=== PATIENT | male | born 1985 | race African-American/Black ===

== ENCOUNTER 2016-11-18 19:37 | Emergency (ER) | payer OTHER ==
--- NOTE | 2016-11-18 20:40 | ER Document Report ---
HPI - HPI Patient complains to provider of: toothache Onset: Other - 1 month Onset/Duration: Persistent Quality of pain: Throbbing Pain Level: 5 Context: 31-year-old male complaining of upper right dental pain for 1 month. He feels like his face is swollen to. No fever or chills. [facility] who treated him with amox[facility] which helped some. It is gotten worse again over the past couple days. He could not sleep last night. Associated Symptoms: None Exacerbated by: Denies Relieved by: Denies Similar symptoms previously: Yes Recently seen / treated by doctor: Yes - ROS ROS below otherwise negative: Yes Systems Reviewed and Negative: Yes All other systems reviewed and negative - DERM Skin Color: Normal Past Medical History - General Information source: Patient - Social History Smoking Status: Current Every Day Smoker Chew tobacco use (# tins/day): No Frequency of alcohol use: Occasional Drug Abuse: None Lives with: Family Family History: Reviewed & Not Pertinent Patient has suicidal ideation: No Patient has homicidal ideation: No - Medical History Medical History: Negative Renal/ Medical History: Denies: Hx Peritoneal Dialysis Surgical Hx: Negative - Immunizations Hx Diphtheria, Pertussis, Tetanus Vaccination: No Vertical Provider Document - CONSTITUTIONAL Agree With Documented VS: Yes Exam Limitations: No Limitations General Appearance: No Apparent Distress - INFECTION CONTROL TRAVEL OUTSIDE OF THE [place] IN LAST 30 DAYS: No - HEENT HEENT: Normocephalic. negative: Pharyngeal Erythema Notes: 1st molar top right with decay, retracted gingiva, no abscess. Similar appearance to top left 1st molar without tenderness. No facial swelling noted. No adenopathy. - NECK Neck: Supple. negative: Lymphadenopathy-Left, Lymphadenopathy-Right - RESPIRATORY Respiratory: Breath Sounds Normal, No Respiratory Distress O2 Sat by Pulse Oximetry: 97 - CARDIOVASCULAR Cardiovascular: Regular Rate, Regular Rhythm - GI/ABDOMEN Gastrointestinal: Abdomen Soft, Abdomen Non-Tender, No Organomegaly - BACK Back: Normal Inspection - MUSCULOSKELETAL/EXTREMETIES Musculoskeletal/Extremeties: ALICIA CARVALHO - NEURO Level of Consciousness: Awake, Alert Motor/Sensory: No Motor Deficit, No Sensory Deficit - DERM Integumentary: Warm, Dry Course - Re-evaluation Re-evalutation: 11/19/16 00:15 late entry: pulse to 106 at discharge - Vital Signs Vital signs: Temp Pulse Resp BP Pulse Ox 98.8 F 118 H 17 138/83 H 97 11/18/16 19:40 11/18/16 19:40 11/18/16 19:40 11/18/16 19:40 11/18/16 19:40 Discharge - Discharge Clinical Impression: dental Pain and decay Condition: Good Disposition: HOME, SELF-CARE Instructions: Toothache ([facility]), Clindamycin ([facility]), Topical Lidocaine ([facility]), Dentist, Dental Infection or Abscess ([facility]) Additional Instructions: warm compress see the dentist return to er if worse Please complete the patient satisfaction survey if you get one, and return it.. If you do not receive a survey, then you can go to the [facility] website, [email or web address] and place your comments about your very good care. Thank you very much. It was a pleasure being your medical provider today. Prescriptions: Ibuprofen [Motrin 800 mg Tablet] 800 mg PO Q8HP PRN #30 tablet PRN Reason: Clindamycin HCl [Cleocin 150 mg Capsule] 300 mg PO TID #42 capsule
[2016-11-18] MEDS ORDERED: IBUPROFEN 800 MG TABLET PO ONE (20:49)
[2016-11-18] MEDS ORDERED: CLINDAMYCIN HCL 150 MG CAPSULE PO ONE (20:50)
[2016-11-18] MEDS ORDERED: LIDOCAINE 2% VISCOUS SOLN 20 ML UDCUP PO ONE (20:52)
[2016-11-18 21:01] VITALS: BP 129/60
== END 2016-11-18 20:58 | disposition home or self-care (01) ==
LOC: ER 19:37
DX: K08.9 Disorder of teeth and supporting structures, unspecified (principal); K02.9 Dental caries, unspecified; F17.200 Nicotine dependence, unspecified, uncomplicated
CPT/HCPCS: 99282; J3490

== ENCOUNTER 2018-09-12 11:32 | Emergency (ER) | payer OTHER ==
[2018-09-12] MEDS ORDERED: IBUPROFEN 600 MG TABLET PO ONE (13:17)
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
[2018-09-12 13:53] VITALS: BP 120/69
== END 2018-09-12 13:53 | disposition home or self-care (01) ==
LOC: ER 11:32
DX: M54.6 Pain in thoracic spine (principal); M54.5 Low back pain; M62.830 Muscle spasm of back; V87.7XXA Person injured in collision between other specified motor vehicles (traffic), initial encounter; F17.200 Nicotine dependence, unspecified, uncomplicated
CPT/HCPCS: 99283